=== PATIENT | male | born 2000 | race Caucasian/White ===

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

== ENCOUNTER 2019-02-01 12:32 | Emergency (ER) | payer BC ==
[~2019-02-01] VITALS: Ht 167.6 cm; Wt 63.6 kg
[2019-02-01 12:32] VITALS: BP 135/75
[2019-02-01] MEDS ORDERED: IBUP-1022 PO (13:00)
--- NOTE | 2019-02-01 13:35 | REP ---
RIGHT SHOULDER, COMPLETE: 02/01/2019. CLINICAL HISTORY: Trauma. FINDINGS: Three views of the shoulder were provided. Clavicle is without fracture, but there is elevation of the clavicle in relationship to the AC joint by more than the width of that joint. No fracture of the ribs, scapula, or humeral head. Humeral head shows no subluxation or dislocation. The glenoid was without fracture and showed no abnormal adjacent soft tissue calcification. IMPRESSION: 1. A grade 3 AC joint separation. No visible fracture. No subluxation or dislocation of the humeral head. Electronically Signed by Chucky Montaño MD 02/01/2019 05:14 P
== END 2019-02-01 13:28 | disposition home or self-care (01) ==
LOC: M ED 12:32
DX: S43.121A Dislocation of right acromioclavicular joint, 100%-200% displacement, initial encounter (principal); W19.XXXA Unspecified fall, initial encounter; Y92.89 Other specified places as the place of occurrence of the external cause; Y93.23 Activity, snow (alpine) (downhill) skiing, snowboarding, sledding, tobogganing and snow tubing; Y99.9 Unspecified external cause status

== ENCOUNTER → 2023-01-22 | Outpatient (REF) | payer BC ==
[~2023-01-22] MED LIST: IBUP-1022 PO
== END ==
LOC: M LAB REF 19:52
PROVIDERS: ATTEND Physician Assistant
DX: J03.90 Acute tonsillitis, unspecified (principal)